=== PATIENT | male | born 1995 | race Caucasian/White ===

== ENCOUNTER 2023-10-16 13:06 | Emergency (ER) | payer OTHER ==
[~2023-10-16] VITALS: Ht 172.7 cm; Wt 99.8 kg
[2023-10-16 13:42] VITALS: BP 146/75; PULSE 103; RESP 18; TEMP 98.2; O2SAT 99
== END 2023-10-16 17:24 | disposition home or self-care (01) ==
LOC: MED 13:06
DX: S93.491A Sprain of other ligament of right ankle, initial encounter (principal); Z79.899 Other long term (current) drug therapy; W18.30XA Fall on same level, unspecified, initial encounter; Y93.89 Activity, other specified; Y92.89 Other specified places as the place of occurrence of the external cause; Y99.8 Other external cause status
CPT/HCPCS: 73630; 99283